=== PATIENT | female | born 1960 | race American Indian/Alaskan Native ===

== ENCOUNTER 2017-03-11 11:51 | Emergency (ER) | payer OTHER ==
[2017-03-11 12:19] VITALS: BP 128/68; PULSE 89; RESP 16; TEMP 98.1; O2SAT 99; BMI 33.7
--- NOTE | 2017-03-11 12:43 | ED PDOC ---
HPI: General Adult Time Seen by Provider: 03/11/17 12:25 Chief Complaint (Nursing): ENT Problem Chief Complaint (Provider): Throat pain History Per: Patient History/Exam Limitations: no limitations Onset/Duration Of Symptoms: Persistent Current Symptoms Are (Timing): Still Present Additional Complaint(s): Danay Nicholson is a 56 y/o female presenting to the ER on 03/11/2017 with complaints of persistent throat pain onset six weeks. Patient states she was given Azithromycin for her symptoms three weeks ago when she was evaluated by her primary doctor, but has not experienced relief since. Patient notes her pain worsens each morning and night. She admits to having associated subjective fevers, rhinorrhea, and sinus tenderness. Patient also reports she has been using an inhaler because she has difficulty breathing, but has not seen any improvement. Of note, patient further admits to swallowing a fishbone about three weeks ago when the presentation of symptoms started. Past Medical History Reviewed: Historical Data, Nursing Documentation, Vital Signs Vital Signs: Last Vital Signs Temp 98.1 F 03/11/17 12:18 Pulse 89 03/11/17 12:18 Resp 16 03/11/17 12:18 BP 128/68 03/11/17 12:18 Pulse Ox 99 03/11/17 13:52 - Medical History PMH: Bronchitis (CHRONIC BRONCHITIS) Denies: Chronic Kidney Disease - Surgical History Surgical History: No Surg Hx - Family History Family History: States: Unknown Family Hx - Social History Current smoker - smoking cessation education provided: No Alcohol: None Drugs: Denies - Home Medications Home Medications: Ambulatory Orders Medication Instructions Recorded Cephalexin [Keflex] 500 mg PO Q8 #21 cap 08/27/16 Zolpidem Tartrate [Ambien Cr] 12.5 mg PO HS PRN 08/27/16 oxyCODONE/Acetaminophen [Percocet 1 tab PO .Q4-6 PRN #40 tab 08/27/16 5/325 mg Tab] Cetirizine HCl [Zyrtec] 10 mg PO QAM #10 capsule 03/06/17 Famotidine [Pepcid] 20 mg PO Q12 #14 tab 03/06/17 Methylprednisolone [Medrol Dosepak] 4 mg PO ASDIR #1 pkg 03/06/17 Amoxicillin/Potassium Clav 1 tab PO BID #10 tab 03/11/17 [Augmentin 500 mg-125 mg] Guaifenesin [Mucinex] 1,200 mg PO BID #14 ter 03/11/17 Methylprednisolone [Medrol Dose 4 mg PO DAILY #21 mg 03/11/17 Pack (21 tabs)] - Allergies Allergies/Adverse Reactions: Allergies Allergy/AdvReac Type Severity Reaction Status Date / Time latex Allergy ITCHING Verified 03/11/17 12:21 timbo Allergy RASH Verified 03/11/17 12:21 ibuprofen [From Motrin] AdvReac ITCHING Verified 03/11/17 12:21 Review of Systems ROS Statement: Except As Marked, All Systems Reviewed And Found Negative Constitutional: Positive for: Fever ENT: Positive for: Nose Pain ((+) sinus pain ), Nose Congestion, Throat Pain Cardiovascular: Negative for: Chest Pain Physical Exam - Reviewed Nursing Documentation Reviewed: Yes Vital Signs Reviewed: Yes - Physical Exam Appears: Positive for: Non-toxic, No Acute Distress Head Exam: Positive for: ATRAUMATIC, NORMOCEPHALIC Skin: Positive for: Normal Color. Negative for: Rash Eye Exam: Positive for: Normal appearance, EOMI, PERRL ENT: Positive for: Normal ENT Inspection, Pharynx Is (clear), TM Is/Are (normal ), Sinus Pain/Drainage ((+) right sided maxillary sinus tenderness ), Nasal Congestion ((+) post nasal drip), Pharyngeal Erythema. Negative for: Tonsillar Exudate, Tonsillar Swelling Neck: Positive for: Normal, Painless ROM, Supple Cardiovascular/Chest: Positive for: Regular Rate, Rhythm. Negative for: Murmur Respiratory: Positive for: Normal Breath Sounds. Negative for: Respiratory Distress Lymphatic: Positive for: Normal Exam ((+) swelling of lymph nodes ), Adenopathy ((+) cervical) Neurologic/Psych: Positive for: Alert, Oriented. Negative for: Motor/Sensory Deficits - ECG O2 Sat by Pulse Oximetry: 99 - Radiology X-Ray: Interpreted by Me, Viewed By Me X-Ray Interpretation: No Acute Disease Medical Decision Making Medical Decision Makin:25 Initial Impression- 56 y/o female with throat pain Initial Plan- * XR Neck (to r/o foreign body) * Rapid Strep Group Rapid Strep Group has been ordered as per patient's request. 13:50 XR reviewed, shows no acute findings. Strep reviewed and is negative. Patient will be advised to an ENT specialist. Patient requires no further treatment in the ED and will be discharged routinely. Advised to return if symptoms persists or worsens. All medical record entries made by the Barbibjenelle were at my direction and personally dictated by me. I have reviewed the chart and agree that the record accurately reflects my personal performance of the history, physical exam, medical decision making, and the department course for this patient. I have also personally directed, reviewed, and agree with the discharge instructions and disposition. Disposition - Clinical Impression Clinical Impression: Rhinosinusitis - Patient ED Disposition Is Patient to be Admitted: No Counseled Patient/Family Regarding: Diagnosis, Need For Followup, Rx Given - Disposition Referrals: [facility] [Provider Group] Disposition: Routine/Home Disposition Time: 13:56 Condition: STABLE Prescriptions: Amoxicillin/Potassium Clav [Augmentin 500 mg-125 mg] 1 tab PO BID #10 tab Guaifenesin [Mucinex] 1,200 mg PO BID #14 ter Methylprednisolone [Medrol Dose Pack (21 tabs)] 4 mg PO DAILY #21 mg Instructions: Rhinosinusitis (ED)
--- NOTE | 2017-03-17 11:48 | RAD ---
PROCEDURE: Radiographs of the neck (soft tissue). HISTORY: ? FB right side COMPARISON: None. TECHNIQUE: Frontal and Lateral Radiographs of the neck, optimized for soft tissue visualization. FINDINGS: SOFT TISSUES: Unremarkable. No radiopaque foreign body seen. CERVICAL SPINE: Grossly unremarkable. OTHER FINDINGS: None. IMPRESSION: Unremarkable radiographs of the soft tissues of the neck.
== END 2017-03-11 14:07 | disposition home or self-care (01) ==
LOC: H.ER 11:51 → MERGE 11:51 → H.ER 14:07
DX: J32.9 Chronic sinusitis, unspecified (principal)

== ENCOUNTER 2017-05-17 16:45 | Emergency (ER) | payer OTHER ==
[2017-05-17 16:45] VITALS: BMI 33.7
[2017-05-17 16:54] VITALS: BP 133/72; PULSE 107; RESP 16; TEMP 98.2; O2SAT 100
--- NOTE | 2017-05-17 17:14 | ED PDOC ---
HPI: General Adult Time Seen by Provider: 05/17/17 17:12 Chief Complaint (Nursing): ENT Problem Chief Complaint (Provider): Right ear pain x 5 days History Per: Patient History/Exam Limitations: no limitations Onset/Duration Of Symptoms: Days Have you had recent travel within the past 21 days to any of the following countries: [place], [place], [place] or [place]?: No Current Symptoms Are (Timing): Still Present Additional Complaint(s): PT states there is no pain unless she touched the ear or tragus. Pt states she felt like there was a pimple but not the hole feels swollen. No fever/chills. No drainage. Past Medical History Reviewed: Historical Data, Nursing Documentation, Vital Signs Vital Signs: Last Vital Signs Temp 98.2 F 05/17/17 16:51 Pulse 107 H 05/17/17 16:51 Resp 16 05/17/17 16:51 BP 133/72 05/17/17 16:51 Pulse Ox 100 05/17/17 16:51 - Medical History PMH: Bronchitis (CHRONIC BRONCHITIS), Gastritis Denies: Chronic Kidney Disease - Surgical History Surgical History: No Surg Hx - Family History Family History: States: Unknown Family Hx - Living Arrangements Living Arrangements: With Family - Social History Current smoker - smoking cessation education provided: No Alcohol: None Drugs: Denies - Home Medications Home Medications: Ambulatory Orders Medication Instructions Recorded Acetaminophen [Tylenol 325mg tab] 325 mg PO Q6 #30 tab 04/25/15 Cyclobenzaprine [Cyclobenzaprine 10 mg PO BID #14 tab 04/25/15 HCl] Acetaminophen/Codeine Phosph 1 tab PO Q4 #16 tab 07/30/15 [Acetaminophen and Codeine Phosphate #3 300 mg] Cephalexin [Keflex] 500 mg PO Q6 #28 cap 07/30/15 Fluconazole [Diflucan] 150 mg PO ONCE #1 tab 07/30/15 Cephalexin [Keflex] 500 mg PO Q8 #21 cap 08/27/16 Zolpidem Tartrate [Ambien Cr] 12.5 mg PO HS PRN 08/27/16 oxyCODONE/Acetaminophen [Percocet 1 tab PO .Q4-6 PRN #40 tab 08/27/16 5/325 mg Tab] Cetirizine HCl [Zyrtec] 10 mg PO QAM #10 capsule 03/06/17 Famotidine [Pepcid] 20 mg PO Q12 #14 tab 03/06/17 Methylprednisolone [Medrol Dosepak] 4 mg PO ASDIR #1 pkg 03/06/17 Amoxicillin/Potassium Clav 1 tab PO BID #10 tab 03/11/17 [Augmentin 500 mg-125 mg] Guaifenesin [Mucinex] 1,200 mg PO BID #14 ter 03/11/17 Methylprednisolone [Medrol Dose 4 mg PO DAILY #21 mg 03/11/17 Pack (21 tabs)] Ciprofloxacin/Dexamethasone 4 drop .ROUTE BID #1 bottle 05/17/17 [Ciprodex 0.3%-0.1% 7.5 Ml] - Allergies Allergies/Adverse Reactions: Allergies Allergy/AdvReac Type Severity Reaction Status Date / Time latex Allergy ITCHING Verified 05/17/17 16:51 timbo Allergy RASH Verified 05/17/17 16:51 ibuprofen [From Motrin] AdvReac ITCHING Verified 05/17/17 16:51 Review of Systems ROS Statement: Except As Marked, All Systems Reviewed And Found Negative Constitutional: Negative for: Fever, Chills ENT: Positive for: Ear Pain Physical Exam - Reviewed Nursing Documentation Reviewed: Yes Vital Signs Reviewed: Yes - Physical Exam Appears: Positive for: Well, Non-toxic, No Acute Distress Head Exam: Positive for: ATRAUMATIC, NORMAL INSPECTION, NORMOCEPHALIC Skin: Positive for: Normal Color, Warm, DRY Eye Exam: Positive for: Normal appearance ENT: Negative for: Normal ENT Inspection ((+) edema of the external auditory canal on the right, (+) tragel tug, (+) pinna pull ) Neck: Positive for: Normal, Painless ROM Respiratory: Negative for: Accessory Muscle Use, Respiratory Distress Back: Positive for: Normal Inspection Extremity: Positive for: Normal ROM Neurologic/Psych: Positive for: Alert, Oriented - ECG O2 Sat by Pulse Oximetry: 100 Disposition - Clinical Impression Clinical Impression: Otitis externa - Patient ED Disposition Is Patient to be Admitted: No Counseled Patient/Family Regarding: Diagnosis, Need For Followup, Rx Given - Disposition Referrals: [facility] [Outside] Disposition: Routine/Home Disposition Time: 17:13 Condition: GOOD Prescriptions: Ciprofloxacin/Dexamethasone [Ciprodex 0.3%-0.1% 7.5 Ml] 4 drop .ROUTE BID #1 bottle Instructions: Otitis Externa (ED)
== END 2017-05-17 17:25 | disposition home or self-care (01) ==
LOC: H.ER 16:45
DX: H60.92 Unspecified otitis externa, left ear (principal)